=== PATIENT | female | born 1950 | race Caucasian/White ===

== ENCOUNTER 2016-11-20 08:32 | Day surgery (SDC) | payer MEDICARE, OTHER ==
[~2016-11-20] VITALS: Ht 157.5 cm; Wt 83.5 kg
[2016-11-20] MEDS ORDERED: LOSA100T6 PO (09:28)
[2016-11-20] MEDS ORDERED: SITA100T PO (09:28)
[2016-11-20 09:39] VITALS: BP 170/80
[2016-11-20] MEDS ORDERED: AMLO5TAB2 PO (09:39)
[2016-11-20] MEDS ORDERED: LACTATED RINGERS 1,000 ML IV SCH (09:53)
[2016-11-20] MEDS ORDERED: LIDOCAINE/PF 1%, 30ML ONE (10:48)
[2016-11-20] MEDS ORDERED: EPINEPHRINE 1 MG/ML, 1ML ONE (10:49)
[2016-11-20] MEDS ORDERED: HYDROcodone/APAP 7.5-325MG/15ML UDC PO PRN (11:00)
[2016-11-20] MEDS ORDERED: FENTANYL PF 100 MCG/2ML IV PRN (11:00)
[2016-11-20] MEDS ORDERED: MEPERIDINE/PF 25MG/0.5ML IVPush PRN (11:00)
[2016-11-20] MEDS ORDERED: ACETAMINOPHEN 325 MG TABLET PO PRN (11:00)
[2016-11-20] MEDS ORDERED: OXYcodone 5 MG/5 ML ORAL.SOL UDC PO PRN (11:00)
[2016-11-20] MEDS ORDERED: HYDROmorphone 1 MG/ML, 1ML IV PRN (11:00)
[2016-11-20] MEDS ORDERED: ONDANSETRON 2MG/ML, 2ML IVPush PRN (11:00)
[2016-11-20] MEDS ORDERED: SUCCINYLCHOLINE 20 MG/ML, 10ML ONE (11:04)
[2016-11-20] MEDS ORDERED: FENTANYL PF 100 MCG/2ML ONE ×2 (11:04)
[2016-11-20] MEDS ORDERED: DEXAMETHASONE 4 MG/ML, 1ML ONE (11:04)
[2016-11-20] MEDS ORDERED: HYDROmorphone 1 MG/ML, 1ML ONE (11:04)
[2016-11-20] MEDS ORDERED: PROPOFOL 10 MG/ML, 20ML ONE (11:04)
[2016-11-20] MEDS ORDERED: ROCURONIUM 10 MG/ML ONE (11:04)
[2016-11-20] MEDS ORDERED: CEFAZOLIN 1,000 MG ONE (11:04)
[2016-11-20] MEDS ORDERED: MIDAZOLAM 1 MG/ML, 2ML ONE (11:04)
[2016-11-20] MEDS ORDERED: KETOROLAC 30 MG/1 ML ONE (11:04)
[2016-11-20] MEDS ORDERED: ONDANSETRON 2MG/ML, 2ML ONE (11:04)
[2016-11-20] MEDS ORDERED: BACITRACIN OINT 500U/GM, 15 GM ONE (12:09)
[2016-11-20 12:14] LABS: ASPARTATE AMINO TRANSFERASE 15 U/L (15-37); BLOOD UREA NITROGEN 62 mg/dL (7-18)
[2016-11-20] MEDS ORDERED: hydrALAzine 20 MG/ML, 1ML ONE (12:55)
[2016-11-20] MEDS ORDERED: HYDROcodone/APAP 7.5-325MG/15ML UDC ONE (13:00)
[2016-11-20] MEDS ORDERED: hydrALAzine 20 MG/ML, 1ML IV ONE (13:00)
== END 2016-11-20 16:05 ==
LOC: OUT 08:32
PROVIDERS: ATTEND Otolaryngology
DX: C06.89 Malignant neoplasm of overlapping sites of other parts of mouth (principal); I10 Essential (primary) hypertension; E11.9 Type 2 diabetes mellitus without complications
CPT/HCPCS: 36415; 40814; 80053; 88305; 93005; J0171; J0330; J0360; J0690; J1100; J1170; J1885; J2250; J2405; J2704; J3010; J3490; J7120

== ENCOUNTER 2018-01-31 11:42 | Day surgery (SDC) | payer MEDICARE ==
[~2018-01-31] VITALS: Ht 157.5 cm; Wt 76.5 kg
[~2018-01-31 11:42] MED LIST: AMLO-150 PO; LOSA100T7 PO; SITA100T PO
[2018-01-31] MEDS ORDERED: EPINEPHRINE 1 MG/ML, 1ML ONE (12:14)
[2018-01-31] MEDS ORDERED: LIDOCAINE 1%-EPI 1:100K, 30ML ONE (12:14)
[2018-01-31] MEDS ORDERED: MINERAL OIL 10 ML VIAL MC ONE (12:15)
[2018-01-31] MEDS ORDERED: FENTANYL PF 250 MCG/5ML ONE (12:29)
[2018-01-31] MEDS ORDERED: SODIUM CHLORIDE 0.9% 1,000 ML IV SCH (12:39)
[2018-01-31] MEDS ORDERED: ACETAMINOPHEN 500 MG TABLET ONE (12:43)
[2018-01-31 12:44] VITALS: BP 180/66
[2018-01-31] MEDS ORDERED: CALC667C PO (12:48)
[2018-01-31] MEDS ORDERED: CARV12.52 PO (12:48)
[2018-01-31] MEDS ORDERED: LABETALOL 5MG/ML, 20ML IV PRN (13:00)
[2018-01-31] MEDS ORDERED: DIPHENHYDRAMINE 50 MG/ML, 1ML IVPush PRN (13:00)
[2018-01-31] MEDS ORDERED: ACETAMINOPHEN 500 MG TABLET PO ONE (13:00)
[2018-01-31] MEDS ORDERED: MEPERIDINE/PF 25MG/0.5ML IVPush PRN (13:00)
[2018-01-31] MEDS ORDERED: PROMETHAZINE 25 MG/ML, 1ML IV PRN (13:00)
[2018-01-31] MEDS ORDERED: HYDROmorphone 2 MG/ML, 1ML IVPush PRN (13:00)
[2018-01-31] MEDS ORDERED: FENTANYL PF 100 MCG/2ML IV PRN (13:00)
[2018-01-31] MEDS ORDERED: hydrALAzine 20 MG/ML, 1ML IV PRN (13:00)
[2018-01-31 13:10] LABS: ALANINE AMINOTRANSFERASE 14 U/L (12-78); ALBUMIN 3.5 g/dL (3.4-5.0); ANION GAP 6 mmol/L (5-15); CALCIUM 8.7 mg/dL (8.5-10.1); CHLORIDE 104 mmol/L (98-107); CREATININE 5.42 mg/dL (0.55-1.02)
[2018-01-31 13:11] LABS: INTERNATIONAL NORMALIZED RATIO 0.96 (0.93-1.1); PROTHROMBIN TIME 10.2 Seconds (9.6-11.5)
[2018-01-31] MEDS ORDERED: SUGAMMADEX 200 MG/2 ML IVPush ONE ×3 (13:11)
[2018-01-31 13:12] LABS: ALKALINE PHOSPHATASE 72 U/L (45-117); BILIRUBIN,TOTAL 0.8 mg/dL (0.2-1.0); TOTAL PROTEIN 7.2 g/dL (6.4-8.2)
[2018-01-31 13:39] LABS: BASOPHILS # (AUTO) 0.02 x10^3/uL (0-0.1); BASOPHILS % (AUTO) 0 % (0-1); EOSINOPHILS # (AUTO) 0.06 x10^3/uL (0-0.4); EOSINOPHILS % (AUTO) 1 % (1-7); LYMPHOCYTES # (AUTO) 1.25 x10^3/uL (1-3.4); LYMPHOCYTES % (AUTO) 14 % (22-44); MD SCAN; MEAN CORPUSCULAR HEMOGLOBIN 30.6 pg (27.0-34.8); MEAN CORPUSCULAR HGB CONC 33.5 g/dL (32.4-35.8); MEAN CORPUSCULAR VOLUME 91.2 fL (80-100); MEAN PLATELET VOLUME 14.9 fL (7.4-10.4); MONOCYTES # (AUTO) 0.55 x10^3/uL (0.2-0.8); MONOCYTES % (AUTO) 6 % (2-9); NEUTROPHILS # (AUTO) 7.08 x10^3/uL (1.8-6.8); NEUTROPHILS % (AUTO) 79 % (42-75); PLATELET COUNT 80 x10^3/uL (130-400); RED BLOOD COUNT 3.92 x10^6/uL (3.82-5.3); RED CELL DISTRIBUTION WIDTH 15.4 % (9.6-15.2)
[2018-01-31] MEDS ORDERED: PROPOFOL 10 MG/ML, 20ML ONE (14:45)
[2018-01-31] MEDS ORDERED: ROCURONIUM 10MG/ML,5ML ONE (14:45)
[2018-01-31] MEDS ORDERED: GLYCOPYRROLATE 0.2MG/1ML, 5ML ONE (14:45)
[2018-01-31] MEDS ORDERED: DEXAMETHASONE 4 MG/ML, 1ML ONE (14:45)
[2018-01-31] MEDS ORDERED: NEOSTIGMINE 1 MG/ML, 10ML ONE (14:45)
[2018-01-31] MEDS ORDERED: CEFAZOLIN 1,000 MG ONE (14:45)
[2018-01-31] MEDS ORDERED: SUCCINYLCHOLINE 20 MG/ML, 10ML ONE (14:45)
[2018-01-31] MEDS ORDERED: ONDANSETRON 2MG/ML, 2ML ONE (14:45)
[2018-01-31] MEDS ORDERED: BACITRACIN OINT 500U/GM, 15 GM ONE (14:48)
[2018-01-31] MEDS ORDERED: OXYcodone 5 MG/5 ML ORAL.SOL UDC ONE (15:17)
[2018-01-31] MEDS: OXYcodone 5 MG/5 ML ORAL.SOL UDC PO PRN ×2 (15:19→17:50)
== END 2018-01-31 19:00 | disposition home or self-care (01) ==
LOC: OUT 11:42
PROVIDERS: ATTEND Otolaryngology
DX: C06.1 Malignant neoplasm of vestibule of mouth (principal); E11.22 Type 2 diabetes mellitus with diabetic chronic kidney disease; I12.9 Hypertensive chronic kidney disease with stage 1 through stage 4 chronic kidney disease, or unspecified chronic kidney disease; N18.9 Chronic kidney disease, unspecified
CPT/HCPCS: 36415; 40814; 80053; 82962; 85025; 85610; 85730; 88305; 93005; J0330; J0690; J1100; J2405; J2704; J2710; J3010; J3490; J7030; J0171

== ENCOUNTER → 2019-01-30 | Outpatient (CLI) | payer MEDICARE ==
[~2019-01-30] MED LIST changes: +CALC667C PO; +CARV12.52 PO; +LOSA100T14 PO; -LOSA100T7 PO
== END | disposition home or self-care (01) ==
LOC: WOUND 13:12
PROVIDERS: ATTEND Family Medicine
DX: E11.622 Type 2 diabetes mellitus with other skin ulcer (principal); L97.811 Non-pressure chronic ulcer of other part of right lower leg limited to breakdown of skin; L97.821 Non-pressure chronic ulcer of other part of left lower leg limited to breakdown of skin; E11.22 Type 2 diabetes mellitus with diabetic chronic kidney disease; I12.0 Hypertensive chronic kidney disease with stage 5 chronic kidney disease or end stage renal disease; N18.6 End stage renal disease; Z85.818 Personal history of malignant neoplasm of other sites of lip, oral cavity, and pharynx; Z99.2 Dependence on renal dialysis
CPT/HCPCS: 97597; G0463

== ENCOUNTER → 2019-02-06 | Outpatient (CLI) | payer MEDICARE | END | disposition home or self-care (01) | LOC: WOUND 10:15 | PROVIDERS: ATTEND Family Medicine | DX: E11.622 Type 2 diabetes mellitus with other skin ulcer (principal); L97.811 Non-pressure chronic ulcer of other part of right lower leg limited to breakdown of skin; L97.821 Non-pressure chronic ulcer of other part of left lower leg limited to breakdown of skin; E11.22 Type 2 diabetes mellitus with diabetic chronic kidney disease; I12.0 Hypertensive chronic kidney disease with stage 5 chronic kidney disease or end stage renal disease; N18.6 End stage renal disease; Z85.818 Personal history of malignant neoplasm of other sites of lip, oral cavity, and pharynx; Z99.2 Dependence on renal dialysis | CPT/HCPCS: G0463 ==